=== PATIENT | female | born 1965 | race Caucasian/White ===

== ENCOUNTER 2019-12-25 16:43 | Emergency (ER) | payer OTHER ==
[~2019-12-25] VITALS: Ht 162.6 cm; Wt 120.2 kg
[~2019-12-25 16:43] MED LIST: ACETAMINOPHEN-1 EAC1 PO; ADDERALL 15 MG15 MG PO; APAP500; CYMBALTA60 MG PO; EXCEDRIN CAPLE1 EACH; FLEXERIL; FLEXERIL PO; IBUPROFEN 200200 M1 PO; IBUPROFEN 800800 M1 PO; IBUPROFEN 800800 MG PO; LISINOPRIL-HCT1 EAC1 PO; MUSCLE RELAXANT; NAPROSYN500 MG PO; NORCO 5-325 TA1 EAC1 PO; NORCO 5-325 TA1 EACH PO; PAXIL10 MG; PENICILLIN VK500 M1 PO; PREDNISONE 20 M20 MG PO; ROBAXIN500 MG PO; TRAMADOL 50 MG50 MG PO; ZANTAC 25MG2.5 MG/M1; ZYRTEC10 MG
[2019-12-25] MEDS ORDERED: LEXAPRO 10 MG T10 M2 PO (16:59)
[2019-12-25] MEDS ORDERED: MELOXICAM7.5 MG PO (16:59)
[2019-12-25] MEDS ORDERED: ADDERALL 30 MG30 MG PO (16:59)
[2019-12-25 17:45] LABS: ABSOLUTE BASOPHILS 0.1 thou/uL (0.0-0.2); ABSOLUTE EOSINOPHILS 0.2 thou/uL (0.0-0.7); ABSOLUTE LYMPHOCYTES 1.1 thou/uL (0.8-5.3); ABSOLUTE MONOCYTES 0.6 thou/uL (0.0-1.2); ABSOLUTE NEUTROPHILS 4.2 thou/uL (1.6-8.1); BASOPHILS 1.5 %; EOSINOPHILS 3.3 %; HEMATOCRIT 30.8 % (37.0-47.0); LYMPHOCYTES 18.3 %; MCH 26.4 pg (26.0-34.0); MCHC 32.4 g/dL (28.0-37.0); MCV 81.3 fL (80.0-100.0); MONOCYTES 9.6 %; MPV 8.8 fl. (7.2-11.1); NUCLEATED RBCS 0 /100WBC; PLATELET COUNT* 334 thou/uL (150-400); POLYS 67.3 %; RBC 3.78 mil/uL (4.20-5.00); RDW-CV 18.2 % (10.5-14.5); WBC 6.2 thou/uL (4.0-11.0)
[2019-12-25 17:55] LABS: CALCIUM 8.9 mg/dL (8.5-10.1); CREATININE 0.7 mg/dL (0.6-1.3); POTASSIUM 3.8 mmol/L (3.5-5.1)
[2019-12-25 18:05] LABS: ALBUMIN 3.7 g/dL (3.4-5.0); TOTAL BILIRUBIN 0.7 mg/dL (<0.1-1.0); TOTAL PROTEIN 7.2 g/dL (6.4-8.2)
[2019-12-25 18:09] LABS: URINE BILIRUBIN NEGATIVE (Negative); URINE BLOOD NEGATIVE (Negative); URINE CLARITY CLEAR; URINE COLOR YELLOW; URINE GLUCOSE-RANDOM NEGATIVE (Negative); URINE KETONES NEGATIVE (Negative); URINE LEUKOCYTES-REFLEX NEGATIVE (Negative); URINE NITRITE-REFLEX NEGATIVE (Negative); URINE PROTEIN NEGATIVE (Negative); URINE SPECIFIC GRAVITY <= 1.005 (1.005-1.030); URINE UROBILINOGEN 0.2 E.U./dl (0.2-1.0)
[2019-12-25 18:17] LABS: AMP/METHAMP POSITIVE (Negative); BARBITURATES Negative (Negative); BENZODIAZEPINES Negative (Negative); COCAINE Negative (Negative); METHADONE Negative (Negative); OPIATES POSITIVE (Negative); PCP Negative (Negative); THC Negative (Negative)
[2019-12-25 19:46] VITALS: BP 139/64
== END 2019-12-25 19:47 | disposition home or self-care (01) ==
LOC: M.ERS 16:43
PROVIDERS: Physician Assistant
DX: R51 Headache (principal); I10 Essential (primary) hypertension; M79.7 Fibromyalgia

== ENCOUNTER 2019-12-27 19:35 | Emergency (ER) | payer OTHER ==
[~2019-12-27] VITALS: Ht 162.6 cm; Wt 74.8 kg
[~2019-12-27 19:35] MED LIST changes: +ADDERALL 30 MG30 MG PO; +LEXAPRO 10 MG T10 M2 PO; +MELOXICAM7.5 MG PO
[2019-12-27 21:38] VITALS: BP 156/88
== END 2019-12-27 21:39 | disposition home or self-care (01) ==
LOC: M.ERS 19:35
DX: F41.9 Anxiety disorder, unspecified (principal); M79.7 Fibromyalgia; I10 Essential (primary) hypertension; Z79.899 Other long term (current) drug therapy

== ENCOUNTER 2020-01-13 19:58 | Inpatient (IN) | payer OTHER ==
[~2020-01-13] VITALS: Ht 162.6 cm; Wt 69.9 kg
--- NOTE | ~2020-01-13 | PROC ---
[address] [address] PROCEDURE REPORT Name: FRANDY RANDLE Room: [address] IN .R.#: [id number] Admission: 01/14/20 Attend Phys: Ana Carter Discharge: 01/16/20 Date of : 63 Report #: [id number] THIS REPORT FOR: //name// cc: KRYSTAL - No family physician/PCP FAM - No family physician/PCP ~ THIS REPORT FOR: //name// For GI report, please see the Provation report in Perceptive 7 content. By: [facility]4Medical Records Staff [facility] /PARUL
[2020-01-13 20:36] VITALS: BP 156/92
[2020-01-13] MEDS ORDERED: VIBRAMYCIN 100100 MG PO (20:41)
[2020-01-13] MEDS ORDERED: LORCET 5-325 M1 EACH PO (20:41)
[2020-01-14] VITALS (7 sets, daily range): BP systolic 102–151; BP diastolic 48–88
[2020-01-14] LABS: ABSOLUTE BASOPHILS 0.1 thou/uL (0.0-0.2); ABSOLUTE EOSINOPHILS 0.3 thou/uL (0.0-0.7); ABSOLUTE MONOCYTES 0.9 thou/uL (0.0-1.2); ABSOLUTE NEUTROPHILS 5.2 thou/uL (1.6-8.1); BASOPHILS 0.6 %; EOSINOPHILS 3.4 %; HEMATOCRIT 24.2 % (37.0-47.0); HEMOGLOBIN 7.8 gm/dL (12.0-15.0); LYMPHOCYTES 24.1 %; MCH 25.3 pg (26.0-34.0); MCHC 32.2 g/dL (28.0-37.0); MCV 78.6 fL (80.0-100.0); MONOCYTES 10.4 %; MPV 8.7 fl. (7.2-11.1); NUCLEATED RBCS 0 /100WBC; PLATELET COUNT* 368 thou/uL (150-400); POLYS 61.5 %; RBC 3.08 mil/uL (4.20-5.00); RDW-CV 19.6 % (10.5-14.5); WBC 8.4 thou/uL (4.0-11.0)
[2020-01-14 00:03] LABS: CALCIUM 8.8 mg/dL (8.5-10.1); CREATININE 0.7 mg/dL (0.6-1.3); POTASSIUM 3.3 mmol/L (3.5-5.1)
[2020-01-14 11:35] LABS: URINE BILIRUBIN NEGATIVE (Negative); URINE BLOOD 2+ (Negative); URINE CLARITY CLEAR; URINE COLOR YELLOW; URINE GLUCOSE-RANDOM NEGATIVE (Negative); URINE KETONES NEGATIVE (Negative); URINE LEUKOCYTES-REFLEX NEGATIVE (Negative); URINE NITRITE-REFLEX NEGATIVE (Negative); URINE PROTEIN NEGATIVE (Negative); URINE SPECIFIC GRAVITY <= 1.005 (1.005-1.030); URINE UROBILINOGEN 0.2 E.U./dl (0.2-1.0)
[2020-01-14 11:42] LABS: AMP/METHAMP POSITIVE (Negative); BARBITURATES Negative (Negative); BENZODIAZEPINES Negative (Negative); COCAINE Negative (Negative); METHADONE Negative (Negative); OPIATES POSITIVE (Negative); PCP Negative (Negative); THC Negative (Negative)
[2020-01-14 11:45] LABS: SQUAMOUS >10 Many /LPF (0-3)
[2020-01-14 11:46] LABS: BACTERIA-REFLEX 1-9 Few /HPF (None Seen); CASTS None Seen /LPF (None Seen); CRYSTALS None Seen /LPF (None Seen); MUCUS None Seen strn/LPF (None Seen); URINE RBC 0-2 Rare /HPF (0-2); URINE WBC-REFLEX 0-5 Rare /HPF (0-5)
[2020-01-14 12:22] LABS: HEMATOCRIT 20.4 % (37.0-47.0); MCV 78.2 fL (80.0-100.0); MPV 8.6 fl. (7.2-11.1); RBC 2.61 mil/uL (4.20-5.00); RDW-CV 19.5 % (10.5-14.5); WBC 6.3 thou/uL (4.0-11.0)
[2020-01-14 12:30] LABS: HEMOGLOBIN 6.5 gm/dL (12.0-15.0)
[2020-01-15] VITALS: BP 107/51
[2020-01-15 04:00] VITALS: BP 109/56
[2020-01-15 04:13] LABS: HEMOGLOBIN 7.5 gm/dL (12.0-15.0); MCH 25.9 pg (26.0-34.0); MCHC 32.7 g/dL (28.0-37.0); MCV 79.2 fL (80.0-100.0); RBC 2.9 mil/uL (4.20-5.00); RDW-CV 18.8 % (10.5-14.5); WBC 6.2 thou/uL (4.0-11.0)
[2020-01-15 04:40] LABS: ALBUMIN 2.9 g/dL (3.4-5.0); CALCIUM 8.2 mg/dL (8.5-10.1); CREATININE 0.5 mg/dL (0.6-1.3); POTASSIUM 3.7 mmol/L (3.5-5.1); TOTAL BILIRUBIN 1.1 mg/dL (<0.1-1.0); TOTAL PROTEIN 5.8 g/dL (6.4-8.2)
[2020-01-15 07:30] VITALS: BP 127/72
[2020-01-15 16:30] VITALS: BP 119/58
[2020-01-15 20:00] VITALS: BP 132/61
[2020-01-16 00:44] VITALS: BP 112/50
[2020-01-16 06:06] LABS: HEMATOCRIT 24.9 % (37.0-47.0); HEMOGLOBIN 8.1 gm/dL (12.0-15.0); MCH 25.7 pg (26.0-34.0); MCHC 32.4 g/dL (28.0-37.0); MCV 79.4 fL (80.0-100.0); MPV 8.4 fl. (7.2-11.1); RBC 3.14 mil/uL (4.20-5.00); WBC 8.9 thou/uL (4.0-11.0)
[2020-01-16 06:23] LABS: CALCIUM 8.2 mg/dL (8.5-10.1); CREATININE 0.6 mg/dL (0.6-1.3); POTASSIUM 4.2 mmol/L (3.5-5.1)
[2020-01-16 08:30] VITALS: BP 114/55
[2020-01-16] MEDS ORDERED: CARAFATE 1 GM TA1 G1 PO (08:34)
[2020-01-16] MEDS ORDERED: LORCET 5-325 M1 EACH PO (08:34)
[2020-01-16] MEDS ORDERED: NEXIUM40 MG PO (08:34)
[2020-01-16] MEDS ORDERED: ATIVAN0.5 M1 PO (08:34)
[2020-01-16] MEDS ORDERED: LIDOPATCH1 EACH TOP (08:34)
[2020-01-16 12:00] VITALS: BP 97/50
[2020-01-16 12:23] VITALS: BP 114/55
[2020-01-16 13:28] VITALS: BP 114/55
--- NOTE | 2020-01-17 17:06 | PATH ---
[address] [address] PATHOLOGY RPT PROCEDURE Name: TEA RANDLE Room: [address] IN .R.#: [id number] Admission: 01/14/20 Date of : 63 Discharge: 01/16/20 Report #: [id number] Path Case #: [id number] [facility] Accession Number: [id number] . 01 Material submitted: . PART A: stomach - ANTRAL EROSION AND ULCER BIOPSY PART B: duodenum - DUODENAL ULCER BIOPSY . 01 Clinical history: . GI BLEED ANXIETY TACTILE HALLUCINATIONS . 02 Diagnosis: A. 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 . B. Duodenal ulcer biopsy: - Moderate nonspecific active duodenitis, negative for granulomas, viral inclusions and dysplasia. . (ROXI:mmharley; 01/17/2020) QL 01/17/2020 1355 Local . 02 Comment: Special stain (A): H. pylori immuno. . (ROXI:mml; 01/17/2020) . 02 Electronically signed: . Roque Love MD, Pathologist NPI- [id number] . 01 Gross description: . A. The specimen is received in formalin, labeled "Tea Parison, antral erosion and ulcer biopsy". Received are four segments of pale [place] soft tissue ranging in size from 0.2 to 0.4 cm in maximum dimensions. The specimen is submitted entirely in cassette A1. . B. The specimen is received in formalin, labeled "Tea Parison, duodenal ulcer biopsy". Received is a segment of pale [place] soft tissue measuring 0.4 cm in maximum dimensions. The specimen is submitted entirely in cassette B1. ([facility]; 01/16/2020) QA/QA 01/16/2020 1757 Local . 02 Pathologist provided ICD-10: K29.50, K25.9, K29.80 [place] [address] PATHOLOGY RPT PROCEDURE Name: TEA RANDLE Room: [address] IN M.R.#: [id number] Admission: 01/14/20 Date of : 63 Discharge: 01/16/20 Report #: [id number] Path Case #: [id number] . 02 CPT . 815861, 113411, [id number] Specimen Comment: A courtesy copy of this report has been sent to [phone] Specimen Comment: [phone] Specimen Comment: Report sent to / DR KNAPP Performed at: [address] [facility] [id number] [facility] [address], [place], [place] [id number] MD Orlando Todd MD Phone: [phone] Performed at: [address] [facility] [address] [place], [place] [id number] MD Roque Love MD Phone: [phone]
[2020-01-17] MEDS ORDERED: LEVOFLOXACIN500 MG PO (18:17)
== END 2020-01-16 14:13 | disposition home or self-care (01) | DRG 378 ==
LOC: M.ERS 19:58 → M.TBA-ER 01-14 03:10 → M.2W 01-14 03:14
PROVIDERS: Emergency Medicine; Internal Medicine; ADMIT Internal Medicine; ATTEND Internal Medicine
DX: K25.4 Chronic or unspecified gastric ulcer with hemorrhage (principal); R44.2 Other hallucinations; K26.4 Chronic or unspecified duodenal ulcer with hemorrhage; D64.9 Anemia, unspecified; F41.9 Anxiety disorder, unspecified; M79.7 Fibromyalgia; I10 Essential (primary) hypertension; G89.29 Other chronic pain; K57.30 Diverticulosis of large intestine without perforation or abscess without bleeding; K64.8 Other hemorrhoids; K21.00 Gastro-esophageal reflux disease with esophagitis, without bleeding; Z20.828 Contact with and (suspected) exposure to other viral communicable diseases; Z79.899 Other long term (current) drug therapy; Z28.21 Immunization not carried out because of patient refusal

== ENCOUNTER 2020-01-17 17:20 | Emergency (ER) | payer OTHER ==
[~2020-01-17] VITALS: Ht 162.6 cm; Wt 116.6 kg
[~2020-01-17 17:20] MED LIST changes: +ATIVAN0.5 M1 PO; +CARAFATE 1 GM TA1 G1 PO; +LIDOPATCH1 EACH TOP; +LORCET 5-325 M1 EACH PO; +NEXIUM40 MG PO; +VIBRAMYCIN 100100 MG PO
[2020-01-17] MEDS ORDERED: LEVOFLOXACIN500 MG PO (18:17)
[2020-01-17 18:25] VITALS: BP 000/00
== END 2020-01-17 18:22 | disposition home or self-care (01) ==
LOC: M.ERS 17:20
DX: L98.9 Disorder of the skin and subcutaneous tissue, unspecified (principal); Z20.828 Contact with and (suspected) exposure to other viral communicable diseases; I10 Essential (primary) hypertension; M79.7 Fibromyalgia

== ENCOUNTER 2020-01-17 18:51 | Emergency (ER) | payer OTHER ==
[~2020-01-17] VITALS: Ht 162.6 cm; Wt 74.8 kg
[~2020-01-17 18:51] MED LIST changes: +LEVOFLOXACIN500 MG PO
[2020-01-17 19:55] VITALS: BP 151/80
== END 2020-01-17 19:55 | disposition left against medical advice (07) ==
LOC: M.ERS 18:51
DX: Z53.21 Procedure and treatment not carried out due to patient leaving prior to being seen by health care provider (principal)

== ENCOUNTER 2020-01-21 18:50 | Emergency (ER) | payer OTHER ==
[~2020-01-21] VITALS: Ht 162.6 cm; Wt 71.2 kg
[2020-01-21] MEDS ORDERED: ADDERALL 10 MG10 MG PO (19:04)
[2020-01-21 19:40] LABS: URINE BILIRUBIN NEGATIVE (Negative); URINE BLOOD TRACE (Negative); URINE CLARITY SL CLOUDY; URINE COLOR YELLOW; URINE GLUCOSE-RANDOM NEGATIVE (Negative); URINE KETONES NEGATIVE (Negative); URINE LEUKOCYTES-REFLEX NEGATIVE (Negative); URINE NITRITE-REFLEX NEGATIVE (Negative); URINE PROTEIN NEGATIVE (Negative); URINE SPECIFIC GRAVITY >= 1.030 (1.005-1.030); URINE UROBILINOGEN 0.2 E.U./dl (0.2-1.0)
[2020-01-21 19:46] LABS: SQUAMOUS >10 Many /LPF (0-3)
[2020-01-21 19:47] LABS: MUCUS 4-6 Moderate strn/LPF (None Seen); URINE RBC 0-2 Rare /HPF (0-2); URINE WBC-REFLEX 0-5 Rare /HPF (0-5)
[2020-01-21 19:48] LABS: HEMOGLOBIN 9.9 gm/dL (12.0-15.0); MCH 25.1 pg (26.0-34.0); MCHC 32.1 g/dL (28.0-37.0); MCV 78.1 fL (80.0-100.0); MPV 8.4 fl. (7.2-11.1); RBC 3.97 mil/uL (4.20-5.00); RDW-CV 18.8 % (10.5-14.5); WBC 7.5 thou/uL (4.0-11.0)
[2020-01-21 19:48] LABS: CRYSTALS None Seen /LPF (None Seen); HYALINE CASTS 0-3 Few /LPF (None Seen)
[2020-01-21 19:56] LABS: AMP/METHAMP POSITIVE (Negative); BARBITURATES Negative (Negative); BENZODIAZEPINES Negative (Negative); COCAINE Negative (Negative); METHADONE Negative (Negative); OPIATES POSITIVE (Negative); PCP Negative (Negative); THC Negative (Negative)
[2020-01-21 19:56] LABS: CALCIUM 9.1 mg/dL (8.5-10.1); CREATININE 0.9 mg/dL (0.6-1.3); POTASSIUM 3.7 mmol/L (3.5-5.1)
[2020-01-21 20:01] LABS: TOTAL BILIRUBIN 0.7 mg/dL (<0.1-1.0)
[2020-01-21 21:50] VITALS: BP 141/76
--- NOTE | 2020-01-23 13:35 | EKG ---
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[place] : 1965 Requested By: Vera Zendejas Order Number: [id number] Reading MD: Jose Li Measurements Intervals [place] Rate: 103 P: 37 [place]: 116 QRS: -16 QRSD: 95 T: 0 QT: 352 QTc: 461 Interpretive Statements Sinus tachycardia Atrial premature complexes RSR' in V1 or V2, probably normal variant poor r wave progression Baseline wander in lead(s) II Compared to ECG 09/16/2014 13:38:53 Atrial premature complex(es) now present Sinus rhythm no longer present Sinus arrhythmia no longer present Electronically Signed On 01-23-2020 13:35:34 CDT by Jose Li [email or web address] <ELECTRONICALLY SIGNED> By: Jose Li MD, FACC 01/23/20 1335 00 00 Jose Li MD, FACC /EPI
== END 2020-01-21 21:50 | disposition home or self-care (01) ==
LOC: M.ERS 18:50
PROVIDERS: Personal Emergency Response Attendant
DX: F41.9 Anxiety disorder, unspecified (principal); I10 Essential (primary) hypertension; M79.7 Fibromyalgia; Z79.899 Other long term (current) drug therapy

== ENCOUNTER 2020-01-28 05:52 | Emergency (ER) | payer OTHER ==
[~2020-01-28] VITALS: Ht 162.6 cm; Wt 70.3 kg
[~2020-01-28 05:52] MED LIST changes: +ADDERALL 10 MG10 MG PO
[2020-01-28 06:14] VITALS: BP 157/98
== END 2020-01-28 06:15 | disposition home or self-care (01) ==
LOC: M.ERS 05:52
DX: L98.9 Disorder of the skin and subcutaneous tissue, unspecified (principal); F19.10 Other psychoactive substance abuse, uncomplicated; M79.7 Fibromyalgia; I10 Essential (primary) hypertension; Z79.899 Other long term (current) drug therapy

== ENCOUNTER 2020-05-11 19:46 | Emergency (ER) | payer OTHER ==
[~2020-05-11] VITALS: Ht 162.6 cm; Wt 61.2 kg
[~2020-05-11 19:46] MED LIST changes: +LEXAPRO 10 MG T10 MG PO; +LISINOPRIL5 MG PO; +PROTONIX40 M2 PO
[2020-05-11 20:56] LABS: HEMOGLOBIN 10.8 gm/dL (12.0-15.0); NUCLEATED RBCS 0 /100WBC; WBC 5.9 thou/uL (4.0-11.0)
[2020-05-11 20:57] LABS: CREATININE 0.5 mg/dL (0.6-1.3); POTASSIUM 3.6 mmol/L (3.5-5.1)
[2020-05-11 20:58] LABS: HEMATOCRIT 34.8 % (37.0-47.0); MCH 22.2 pg (26.0-34.0); MCV 71.5 fL (80.0-100.0); MPV 8.6 fl. (7.2-11.1); PLATELET COUNT* 275 thou/uL (150-400); RBC 4.87 mil/uL (4.20-5.00); RDW-CV 24.2 % (10.5-14.5)
[2020-05-11 21:02] LABS: ALBUMIN 3.8 g/dL (3.4-5.0); TOTAL BILIRUBIN 0.7 mg/dL (<0.1-1.0); TOTAL PROTEIN 7.4 g/dL (6.4-8.2)
[2020-05-11 21:22] LABS: URINE BILIRUBIN NEGATIVE (Negative); URINE BLOOD NEGATIVE (Negative); URINE CLARITY SL CLOUDY; URINE COLOR YELLOW; URINE GLUCOSE-RANDOM NEGATIVE (Negative); URINE KETONES NEGATIVE (Negative); URINE LEUKOCYTES-REFLEX 2+ (Negative); URINE NITRITE-REFLEX NEGATIVE (Negative); URINE PROTEIN NEGATIVE (Negative); URINE UROBILINOGEN 0.2 E.U./dl (0.2-1.0)
[2020-05-11] MEDS ORDERED: BACTRIM DS TAB1 EACH PO (21:26)
[2020-05-11] MEDS ORDERED: DIFLUCAN150 MG PO (21:26)
[2020-05-11 21:28] LABS: BACTERIA-REFLEX >30 Many /HPF (None Seen); CASTS None Seen /LPF (None Seen); CRYSTALS None Seen /LPF (None Seen); MUCUS 4-6 Moderate strn/LPF (None Seen); SQUAMOUS >10 Many /LPF (0-3); TRANSITIONAL EPITHEL CELL 4-10 Moderate /LPF (None Seen); URINE RBC 3-10 Few /HPF (0-2)
[2020-05-11 21:46] VITALS: BP 161/93
[2020-05-11 21:50] LABS: ABSOLUTE BASOPHILS 0.1 thou/uL (0.0-0.2); ABSOLUTE EOSINOPHILS 0.1 thou/uL (0.0-0.7); ABSOLUTE LYMPHOCYTES 2.3 thou/uL (0.8-5.3); ABSOLUTE MONOCYTES 0.4 thou/uL (0.0-1.2); ANISOCYTOSIS 2+; ATYPICAL LYMPHS 2 %; HYPOCHROMASIA 2+; PLATELET ESTIMATE ADEQUATE; POLYCHROMASIA 1+
[2020-05-11 21:51] LABS: MICROCYTES 2+; OVALOCYTES 1+; SCHISTOCYTES 1+; TARGET CELLS 1+; TEARDROPS 1+
[2020-05-11 21:52] LABS: POIKILOCYTOSIS 2+
[2020-05-11 21:58] LABS: AMP/METHAMP POSITIVE (Negative); BARBITURATES Negative (Negative); BENZODIAZEPINES Negative (Negative); COCAINE Negative (Negative); METHADONE Negative (Negative); OPIATES Negative (Negative); PCP Negative (Negative); THC Negative (Negative)
== END 2020-05-11 21:46 | disposition home or self-care (01) ==
LOC: M.ERS 19:46
PROVIDERS: Physician Assistant
DX: N39.0 Urinary tract infection, site not specified (principal); F41.9 Anxiety disorder, unspecified; M79.7 Fibromyalgia; I10 Essential (primary) hypertension; Z79.899 Other long term (current) drug therapy

== ENCOUNTER 2020-05-11 22:13 | Emergency (ER) | payer OTHER ==
[~2020-05-11] VITALS: Ht 162.6 cm; Wt 67.1 kg
[~2020-05-11 22:13] MED LIST changes: +BACTRIM DS TAB1 EACH PO; +DIFLUCAN150 MG PO
[2020-05-11 23:22] VITALS: BP 141/95
== END 2020-05-11 23:23 | disposition home or self-care (01) ==
LOC: M.ERS 22:13
DX: K64.4 Residual hemorrhoidal skin tags (principal); M79.7 Fibromyalgia; I10 Essential (primary) hypertension